=== PATIENT | male | born 1965 | race Caucasian/White ===

== ENCOUNTER 2017-02-15 11:33 | Emergency (ER) | payer OTHER ==
[~2017-02-15] VITALS: Ht 180.3 cm; Wt 90.7 kg
[2017-02-15] MEDS ORDERED: TRAMADOL 50MG T50 M1 PO (11:47)
[2017-02-15 12:12] LABS: HEMOGLOBIN 14.5 g/dL (14.1-18.0); LYMPH # 2.2 K/mm3 (0.7-4.5); LYMPH % 27.6 % (10-50)
--- NOTE | 2017-02-15 12:14 | Emergency Room Report ---
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 N Clinical Suspician of Infection? N Mental Status: 1 - Regular (Normal Baseline) Sepsis Risk:Low Sepsis Risk Have you (or family members/close friends) recently traveled outside the [place]? N If Yes, where/when: Have you had exposure to infectious disease within the past month? N TB? Other? Specify: Source patient, RN notes reviewed, family, RN/MD Exam Limitations no limitations Comment This is a 52-year-old male arriving to the emergency room complaining with a variety of symptoms: low back pain x 2 weeks, brownish discharge since Wednesday (for the past 2 days), brownish discharge from the surgical wound (for the past 2 days), numbness and tingling of the lower extremities, below the knees cold feet (present befor the surgery, but recurrent afterwards), pain in the lower extremities with walking. Patient underwent a L4-L5 laminectomy on 02/02/17 at [facility] by Dr. Bry Mills, due to a herniated disc and pinched nerve. He had a normal postoperative course, over the next few days. She denies any fever, any chills. He called the neurosurgeon's office earlier this morning and he was advised to go to the emergency room for evaluation. He is taking Ultram for pain, which patient advised is not helping his pain too much. Patient denies any urinary incontinence, denies any fecal incontinence. The patient has not changed his surgical dressing in the past 12 hours, which appears to have a small 1 x 1 cm stain of dried blood. ALLERGIES Coded Allergies: No Known Allergies (02/15/17) Home Medications Reported Medications TRAMADOL HCL (Tramadol) 50 MG PO Q6H6 History Medical History General CAD? No Angina: No [place]: No Hypertension? No PE? No COPD? No Asthma? No Anemia? No CVA? No Seizures? No Diabetes? No Stones? No BPH? No GB Disease: No Nephritic Syndrome? No Immunization Hx DT/Tetanus Unknown Surgical Hx Previous Surgery?Y Back Surgery Social History Smoking Hx Smoker: Never Smoker Tobacco: No Review of Systems All Other Systems Reviewed and Negative Musculoskeletal back pain Psychiatric/Neurological tingling (lower extremities, below knees) Physical Exam Vital Signs Vital Signs Date Time Temp Pulse Resp B/P Pulse O2 O2 Flow FiO2 Ox Delivery Rate 02/15 1350 97.5 98 18 120/75 99 02/15 1137 97.5 98 18 118/80 99 General Appearance normal appearance, WD/WN Respiratory Status Yes: trachea midline, chest symmetrical, non tender chest. No: respiratory distress. Lung Sounds bilateral: normal breath sounds, lungs clear. Cardiovascular normal exam, regular rate/rhythm, no peripheral edema, no gallop, no JVD, no murmur, no rub, normal peripheral pulses Gastrointestinal normal bowel sounds, normal exam, non tender, soft, no organomegaly Back no CVA tenderness, no vertebral tenderness, muscle spasm Neurologic alert, career information specialist II-XII nml as tested, normal exam, oriented x 3 Mental status normal mood/affect Skin normal color, warm/dry, midline low back post surgical wound, normal healing process, stapled, no soft tissue swelling, no active drainage Medical Decision Making LABS/Meds/Orders Pt receiving controlled substance in ED? Yes Azeem was queried for this patient? No Reason not queried - hospital network issues Risks/benefits of using a controlled substance for treatment were discussed w/pt by me Comment 11:45am-case discussed with Dr. Mills, called the office. Advised of the patient' s presentation and findings. There is a discrepancy between the symptoms given to the office (by the patient) vs actual findings and symptoms acknowledged upon arrival to the emergency room. Apparently, the office was under the impression the patient was unable to walk, which is definetly not accurate, as the patient was seen walking from the car to the wheelchair, across a parking lot, as well as from the wheelchair to the ER bed. Dr. Mills recommended to obtain a CT scan of the LS spine with IV contrast in order to rule out a possible epidural abscess, and be called back with results. Again the patient does not seem to have an examination consistent with the complaints described to the office, namely numbness and weakness of the lower extremities (or inabilitry to walk). 13:35-called xavi Mills (2nd time, this time on his cell phone, given by the office) and advised of the CT scan findings. Dr. Mills wants to see the patient in his [place] office tomorrow, with imaging studies copied on a CR-ROM. 13:40-called the office myself and schedule patient at the [place] location for 3:45 PM tomorrow. 13:45-Quinton, Dr Mills's PA, called back this emergency room department in order to discuss case and findings, aware of the appointment tomorrow, at 3:45 PM tomorrow. Neither Quinton nor Dr Mills want to start antibiotics. Copies of the CT scan, as well as lab work, given to the patient to take to the neurosurgeon's office tomorrow. Results/Orders Laboratory Tests 02/15/17 1435: POC Glucose 227 H 02/15/17 1200: Sodium 137, Potassium 5.2 H, Chloride 101, Carbon Dioxide 25, BUN 17, Creatinine 1.4 H, Estimated Creat Clear 81, Estimated GFR (MDRD) 54, Glucose 417 H, Calcium 8.9, Total Bilirubin 1.1 H, AST 22, ALT 43, Alkaline Phosphatase 86, Total Protein 6.7, Albumin 3.7, Globulin 3.0, Albumin/Globulin Ratio 1.2, WBC 7.8, RBC 4.82, Hgb 14.5, Hct 44.3, MCV 91.8, RDW 12.6, Plt Count 350, MPV 7.0 L, Gran % 63.9, Gran # 5.0, Lymphocytes % 27.6, Monocytes % 5.5, Eosinophils % 2.6, Basophils % 0.3, Lymphocytes # 2.2, Monocytes # 0.4, Eosinophils # 0.2, Basophils # 0.0, PUBS MCHC 32.7, MCH 30.1 Current Medication Orders Sig/Alexander Start time Last Medication Dose Route Stop Time Status Admin Insulin Human Regular 6 UNITS ONCE ONE 02/15 1400 DC 02/15 IVP 02/15 1401 1358 Insulin Human Regular 0 .STK-MED ONE 02/15 1357 DC .ROUTE Sodium Chloride 1,000 ML .STK-MED ONE 02/15 1252 DC IV Sodium Chloride 1,000 ML .Q1H1M 02/15 1245 DC 02/15 IV 02/15 1345 1252 Sodium Chloride 10 ML PRN PRN 02/15 1245 DCD IV 02/16 1241 Sodium Chloride 10 ML PRN PRN 02/15 1200 DCD IV 02/16 1149 Orders Procedure Date/time Status FINGERSTICK BLOOD SUGAR 02/15 1435 Complete FSBS REQUEST BY CARE AREA 02/[address] SCAN REQUEST 02/15 1149 Complete IV SALINE LOCK 02/15 1149 Active CBC WITH AUTO DIFF 02/15 1148 Complete CHEM 12 PROFILE 02/15 1148 Complete XRAY/CT/US XRAY/CT/US CT L-spine (IV contrast) CT interpretation by discussed w/radiologist (Dr. Hawkins) CT Results case discussed with Dr. Hawkins over the phone as well as in person, he does not think the patient has any prodromal abscess. Furthermore the radiologist advised the patient has a small seroma tract, and he is concerned with a possible dural leak. Those findings were conveyed to the neurosurgeon, Dr. Mills. Departure Departure Time of Disposition 1331 Disposition DC Home or Self Care(routine) Clinical Impression Primary Impression: Post-op pain Secondary Impressions: Acute renal injury Diabetes mellitus Qualifiers: Diabetes mellitus type: type 2 Diabetes mellitus complication status: with unspecified complications Diabetes mellitus mcc insulin use: without mcc use Qualified Code: E11.8 - Type 2 diabetes mellitus with unspecified complications Condition STABLE Referrals Gene CONRAD,Bry Farr tomorrow at 3:45pm at the [facility] Patient Instructions Complications of Diabetes (Alternative Therapy), DI for Diabetes Type 2, Diabetes Research 2008, Diet Soda Intake Linked to Increase Risk of Type 2 Diabetes, DIET-TYPE2 DIABETES NUTRIT.[facility], Green Leafy Vegetables May Decrease Risk of Type 2 Diabetes, Low Back Pain, Processed Meat Associated with Increased Risk of Diabetes and Coronary Hear, Sugar-Sweetened Fruit Drinks Linked to Increased Chance of Type 2 Diabetes , Type 2 Diabetes, Type 2 Diabetes Associated with Increased Risk of Depression Additional Instructions Please go follow up with Dr. Bry Mills in the [place] office tomorrow at 3: 45 PM, as discussed with his physician grooming assistant as well as secretary receptionist. Attached , please find enclosed copies of the CT scan of your LS spine with iv dye, obtained today, + report and blood work. Please see your [facility] today (regarding your diabetes), as already scheduled!!! Discharge Counseling Counseled pt/family regarding diagnosis, test results, medications/RX, home care, follow up needs Comment Please go follow up with Dr. Bry Mills in the [place] office tomorrow at 3: 45 PM, as discussed with his physician grooming assistant as well as secretary receptionist. Attached , please find enclosed copies of the CT scan of your LS spine with iv dye, obtained today, + report and blood work. Prescriptions Current Visit Scripts HYDROCODONE/ACETAMINOPHEN (Lortab 10-325 (generic) Tablet) 1 TAB PO Q6HP PRN pain #6 TAB ED Critical Care Critical Care No at [id number]
--- NOTE | 2017-02-15 12:14 | Emergency Room Report ---
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 N Clinical Suspician of Infection? N Mental Status: 1 - Regular (Normal Baseline) Sepsis Risk:Low Sepsis Risk Have you (or family members/close friends) recently traveled outside the [place]? N If Yes, where/when: Have you had exposure to infectious disease within the past month? N TB? Other? Specify: Source patient, RN notes reviewed, family, RN/MD Exam Limitations no limitations Comment This is a 52-year-old male arriving to the emergency room complaining with a variety of symptoms: low back pain x 2 weeks, brownish discharge since Wednesday (for the past 2 days), brownish discharge from the surgical wound (for the past 2 days), numbness and tingling of the lower extremities, below the knees cold feet (present befor the surgery, but recurrent afterwards), pain in the lower extremities with walking. Patient underwent a L4-L5 laminectomy on 02/02/17 at [facility] by Dr. Bry Mills, due to a herniated disc and pinched nerve. He had a normal postoperative course, over the next few days. She denies any fever, any chills. He called the neurosurgeon's office earlier this morning and he was advised to go to the emergency room for evaluation. He is taking Ultram for pain, which patient advised is not helping his pain too much. Patient denies any urinary incontinence, denies any fecal incontinence. The patient has not changed his surgical dressing in the past 12 hours, which appears to have a small 1 x 1 cm stain of dried blood. ALLERGIES Coded Allergies: No Known Allergies (02/15/17) Home Medications Reported Medications TRAMADOL HCL (Tramadol) 50 MG PO Q6H6 History Medical History General CAD? No Angina: No [place]: No Hypertension? No PE? No COPD? No Asthma? No Anemia? No CVA? No Seizures? No Diabetes? No Stones? No BPH? No GB Disease: No Nephritic Syndrome? No Immunization Hx DT/Tetanus Unknown Surgical Hx Previous Surgery?Y Back Surgery Social History Smoking Hx Smoker: Never Smoker Tobacco: No Review of Systems All Other Systems Reviewed and Negative Musculoskeletal back pain Psychiatric/Neurological tingling (lower extremities, below knees) Physical Exam Vital Signs Vital Signs Date Time Temp Pulse Resp B/P Pulse O2 O2 Flow FiO2 Ox Delivery Rate 02/15 1350 97.5 98 18 120/75 99 02/15 1137 97.5 98 18 118/80 99 General Appearance normal appearance, WD/WN Respiratory Status Yes: trachea midline, chest symmetrical, non tender chest. No: respiratory distress. Lung Sounds bilateral: normal breath sounds, lungs clear. 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 Yes Azeem was queried for this patient? No Reason not queried - hospital network issues Risks/benefits of using a controlled substance for treatment were discussed w/pt by me Comment 11:45am-case discussed with Dr. Mills, called the office. Advised of the patient' s presentation and findings. There is a discrepancy between the symptoms given to the office (by the patient) vs actual findings and symptoms acknowledged upon arrival to the emergency room. Apparently, the office was under the impression the patient was unable to walk, which is definetly not accurate, as the patient was seen walking from the car to the wheelchair, across a parking lot, as well as from the wheelchair to the ER bed. Dr. Mills recommended to obtain a CT scan of the LS spine with IV contrast in order to rule out a possible epidural abscess, and be called back with results. Again the patient does not seem to have an examination consistent with the complaints described to the office, namely numbness and weakness of the lower extremities (or inabilitry to walk). 13:35-called xavi Mills (2nd time, this time on his cell phone, given by the office) and advised of the CT scan findings. Dr. Mills wants to see the patient in his [place] office tomorrow, with imaging studies copied on a CR-ROM. 13:40-called the office myself and schedule patient at the [place] location for 3:45 PM tomorrow. 13:45-Quinton, Dr Mills's PA, called back this emergency room department in order to discuss case and findings, aware of the appointment tomorrow, at 3:45 PM tomorrow. Neither Quinton nor Dr Mills want to start antibiotics. Copies of the CT scan, as well as lab work, given to the patient to take to the neurosurgeon's office tomorrow. Results/Orders Laboratory Tests 02/15/17 1435: POC Glucose 227 H 02/15/17 1200: Sodium 137, Potassium 5.2 H, Chloride 101, Carbon Dioxide 25, BUN 17, Creatinine 1.4 H, Estimated Creat Clear 81, Estimated GFR (MDRD) 54, Glucose 417 H, Calcium 8.9, Total Bilirubin 1.1 H, AST 22, ALT 43, Alkaline Phosphatase 86, Total Protein 6.7, Albumin 3.7, Globulin 3.0, Albumin/Globulin Ratio 1.2, WBC 7.8, RBC 4.82, Hgb 14.5, Hct 44.3, MCV 91.8, RDW 12.6, Plt Count 350, MPV 7.0 L, Gran % 63.9, Gran # 5.0, Lymphocytes % 27.6, Monocytes % 5.5, Eosinophils % 2.6, Basophils % 0.3, Lymphocytes # 2.2, Monocytes # 0.4, Eosinophils # 0.2, Basophils # 0.0, PUBS MCHC 32.7, MCH 30.1 Current Medication Orders Sig/Alexander Start time Last Medication Dose Route Stop Time Status Admin Insulin Human Regular 6 UNITS ONCE ONE 02/15 1400 DC 02/15 IVP 02/15 1401 1358 Insulin Human Regular 0 .STK-MED ONE 02/15 1357 DC .ROUTE Sodium Chloride 1,000 ML .STK-MED ONE 02/15 1252 DC IV Sodium Chloride 1,000 ML .Q1H1M 02/15 1245 DC 02/15 IV 02/15 1345 1252 Sodium Chloride 10 ML PRN PRN 02/15 1245 DCD IV 02/16 1241 Sodium Chloride 10 ML PRN PRN 02/15 1200 DCD IV 02/16 1149 Orders Procedure Date/time Status FINGERSTICK BLOOD SUGAR 02/15 1435 Complete FSBS REQUEST BY CARE AREA 02/[address] SCAN REQUEST 02/15 1149 Complete IV SALINE LOCK 02/15 1149 Active CBC WITH AUTO DIFF 02/15 1148 Complete CHEM 12 PROFILE 02/15 1148 Complete XRAY/CT/US XRAY/CT/US CT L-spine (IV contrast) CT interpretation by discussed w/radiologist (Dr. Hawkins) CT Results case discussed with Dr. Hawkins over the phone as well as in person, he does not think the patient has any prodromal abscess. Furthermore the radiologist advised the patient has a small seroma tract, and he is concerned with a possible dural leak. Those findings were conveyed to the neurosurgeon, Dr. Mills. Departure Departure Time of Disposition 1331 Disposition DC Home or Self Care(routine) Clinical Impression Primary Impression: Post-op pain Secondary Impressions: Acute renal injury Diabetes mellitus Qualifiers: Diabetes mellitus type: type 2 Diabetes mellitus complication status: with unspecified complications Diabetes mellitus long-term insulin use: without long-term use Qualified Code: E11.8 - Type 2 diabetes mellitus with unspecified complications Condition STABLE Referrals Gene CONRAD,Bry Farr tomorrow at 3:45pm at the [facility] Patient Instructions Complications of Diabetes (Alternative Therapy), DI for Diabetes Type 2, Diabetes Research 2008, Diet Soda Intake Linked to Increase Risk of Type 2 Diabetes, DIET-TYPE2 DIABETES NUTRIT.[facility], Green Leafy Vegetables May Decrease Risk of Type 2 Diabetes, Low Back Pain, Processed Meat Associated with Increased Risk of Diabetes and Coronary Hear, Sugar-Sweetened Fruit Drinks Linked to Increased Chance of Type 2 Diabetes , Type 2 Diabetes, Type 2 Diabetes Associated with Increased Risk of Depression Additional Instructions Please go follow up with Dr. Bry Mills in the [place] office tomorrow at 3: 45 PM, as discussed with his physician real estate administrative assistant as well as chief financial officer. Attached , please find enclosed copies of the CT scan of your LS spine with iv dye, obtained today, + report and blood work. Please see your [facility] today (regarding your diabetes), as already scheduled!!! Discharge Counseling Counseled pt/family regarding diagnosis, test results, medications/RX, home care, follow up needs Comment Please go follow up with Dr. Bry Mills in the [place] office tomorrow at 3: 45 PM, as discussed with his physician real estate administrative assistant as well as chief financial officer. Attached , please find enclosed copies of the CT scan of your LS spine with iv dye, obtained today, + report and blood work. Prescriptions Current Visit Scripts HYDROCODONE/ACETAMINOPHEN (Lortab 10-325 (generic) Tablet) 1 TAB PO Q6HP PRN pain #6 TAB ED Critical Care Critical Care No at [id number]
--- OUTSIDE RECORDS SUMMARY | 2017-02-15 12:37 | External Medical Summary Rpt | CCD ---
Author Author [employer] Organization [employer] Address Unknown Phone Unavailable Purpose Continuity of Care Document - through 2016
--- OUTSIDE RECORDS SUMMARY | 2017-02-15 12:37 | External Medical Summary Rpt ---
Author Author [facility] Organization [facility] Address Unknown Phone Unavailable Care Team Providers Care Curb Attendant Name Role Phone DR GABBY PCP [phone] Encounter [facility] [id number] Date(s): 01/28/17 - 02/02/17 [facility] [address] [place] [address]- [phone] Discharge Disposition: OP Self Care or Home Attending Physician: ANNIE COVARRUBIAS MD-ORSancho Admitting Physician: ANNIE COVARRUBIAS MD-ORSancho Referring Physician: ANNIE COVARRUBIAS MD-ORT Reason for Visit RADICULOPATHY, LUMBAR REGION Vital Signs Most recent 1 2 3 to oldest [Reference Range]: Temperature Temporal artery Temporal artery Temporal artery Source scanning (02/02/17 scanning (02/02/17 scanning (02/02/17 2:18 PM) 1:00 PM) 11:50 AM) Temperature Fahrenheit Fahrenheit Fahrenheit Mode (02/02/17 2:18 PM) (02/02/17 1:00 PM) (02/02/17 11:50 AM) Temperature, 98 Deg F 96.9 Deg F 96.6 Deg F Fahrenheit (02/02/17 2:18 PM) (02/02/17 1:00 PM) *LOW*(02/02/17 [96.8-99.7 11:50 AM) Deg F] Clinical 36.7 Deg C 36.1 Deg C 35.9 Deg C Temperature, (02/02/17 2:18 PM) (02/02/17 1:00 PM) (02/02/17 11:50 C AM) Peripheral 91 bpm 89 bpm (02/01/17 Pulse Rate (02/02/17 2:33 PM) 10:15 AM) [60-100 bpm] Heart Rate 83 bpm 84 bpm 78 bpm Monitored (02/02/17 2:18 PM) (02/02/17 2:00 PM) (02/02/17 1:30 PM) [60-100 bpm] Respiratory 49 Breaths/Min 26 Breaths/Min 17 Breaths/Min Rate [14-20 *HI* *HI* (02/02/17 1:30 PM) Breaths/Min] (02/02/17 2:18 PM) (02/02/17 2:00 PM) Blood 156/76 mmHg 158/65 mmHg 138/63 mmHg Pressure *HI* *HI* (02/02/17 2:00 PM) [90-140/60-9 (02/02/17 2:33 PM) (02/02/17 2:18 PM) 0 mmHg] Mean 96 mmHg 88 mmHg 97 mmHg Arterial (02/02/17 2:18 PM) (02/02/17 2:00 PM) (02/02/17 1:30 PM) Pressure (MAP) Mean 94 91 100 Arterial (02/02/17 2:18 PM) (02/02/17 2:00 PM) (02/02/17 1:30 PM) Pressure (MAP)-BMDI Oxygen 98 % 93 % 92 % Saturation (02/02/17 2:33 PM) *LOW* *LOW* [94-100 %] (02/02/17 2:18 PM) (02/02/17 2:00 PM) Oxygen Room air Room air Room air Therapy Mode (02/02/17 2:18 PM) (02/02/17 2:00 PM) (02/02/17 1:30 PM) Oxygen Flow 6 Liter/Min Rate (02/02/17 11:50 AM) Height Measured (02/01/17 Source 10:15 AM) Height Entry [place] (02/01/17 Format 10:15 AM) Height/Lengt 71 Inch (02/01/17 h [place] 10:15 AM) CLINICALHEIG 180.34 cm HT (02/01/17 10:15 AM) Weight Standing scale Source (02/01/17 10:15 AM) Weight Entry [place] (02/01/17 Format 10:15 AM) Weight 213 lb (02/01/17 [place] lb 10:15 AM) CLINICALWEIG 96.82 kg (02/01/17 HT 10:15 AM) Body Surface 2.17 m2 (02/01/17 Area (BSA) 10:15 AM) Body Mass 29.8 kg/m2 Index [19-24 *HI*(02/01/17 kg/m2] 10:15 AM) [place] Body 74 kg (02/01/17 Weight 10:15 AM) Problem List Condition Effective Status Health Informant Dates Status Back Active pain(Confirm ed) Numbness and Active tingling//fe et(Confirmed ) Leg pain, Active bilateral(Co nfirmed) Wears Active contacts(Con firmed) Allergies, Adverse Reactions, Alerts No Known Allergies Medications acetaminophen/aspirin/caffeine (Excedrin Migraine oral tablet)2 Tablet(s) Oral Every 6 Hours as needed for headache. ascorbic acid (Vitamin C 250 mg oral tablet, chewable)1 Tablet(s) Chew Every Day. aspirin (Aspir 81)81 Milligram(s) Oral Every Day. last dose 2 weeks. multivitamin 1 Tablet(s) Oral Every Day. Results GENERAL CHEMISTRY Most recent 1 to oldest [Reference Range]: Sodium Level 141 mmol/L [136-146 (02/01/17 10:52 AM) mmol/L] Potassium 4.5 mmol/L Level (02/01/17 10:52 AM) [3.5-5.1 mmol/L] Chloride 106 mmol/L Level (02/01/17 10:52 AM) [102-112 mmol/L] Carbon 25 mmol/L Dioxide (02/01/17 10:52 AM) Level [21-32 mmol/L] Anion Gap 14 [9-20] (02/01/17 10:52 AM) Glucose 242 mg/dL Level *HI* [74-106 (02/01/17 10:52 AM) mg/dL] Blood Urea 9 mg/dL Nitrogen (02/01/17 10:52 AM) [7-22 mg/dL] Creatinine 1.10 mg/dL Level (02/01/17 10:52 AM) [0.70-1.30 mg/dL] eGFR 86 mL/min/1.73m2 [>=60 (02/01/17 10:52 AM) mL/min/1.73m 2] eGFR 71 mL/min/1.73m2 NonAfrican (02/01/17 10:52 AM) [>=60 mL/min/1.73m 2] Bun/Creatini 8.2 ne (02/01/17 10:52 AM) [8.0-20.0] Calcium 8.4 mg/dL Level *LOW* [8.5-10.1 (02/01/17 10:52 AM) mg/dL] Device No action Require Comment 1 *NA* (02/02/17 8:22 AM) Glucose POC2 160 mg/dL [70-110 *HI* mg/dL] (02/02/17 8:22 AM) HEMATOLOGY Most recent 1 to oldest [Reference Range]: WBC [4.2-9.1 7.0 K/uL K/uL] (02/01/17 10:52 AM) RBC 4.70 Million/uL [4.63-6.08 (02/01/17 10:52 AM) Million/uL] Hgb 14.6 g/dL [13.7-17.5 (02/01/17 10:52 AM) g/dL] Hct 41.7 % [40.1-51.0 (02/01/17 10:52 AM) %] MCV 88.7 fL [79.0-94.8 (02/01/17 10:52 AM) fL] MCH 31.1 pg [25.6-32.2 (02/01/17 10:52 AM) pg] MCHC 35.0 Gram/dL [32.2-36.5 (02/01/17 10:52 AM) Gram/dL] Platelet 258 K/uL Count (02/01/17 10:52 AM) [163-369 K/uL] MPV 9.9 fL [9.4-12.4 (02/01/17 10:52 AM) fL] RDW 12.4 % [11.6-14.4 (02/01/17 10:52 AM) %] Slide Review No (02/01/17 10:52 AM) BLOOD BANK Most recent 1 to oldest [Reference Range]: ABO/Rh A POS (ECHO) *Unknown* (02/01/17 10:52 AM) ABO/Rh A POS Repeat *Unknown* (02/02/17 8:23 AM) Antibody Negative ABSC Screen (02/01/17 10:52 AM) Immunizations No data available for this section Procedures Procedure Date Related Body Site Diagnosis none Social History Social History Response Type Smoking Status Never smoker Assessment and Plan No data available for this section Hospital Discharge Instructions Patient EducationOutpatient Surgery Guidelines, Adult
--- OUTSIDE RECORDS SUMMARY | 2017-02-15 12:37 | External Medical Summary Rpt ---
Author Author [facility] Organization [facility] Address Unknown Phone Unavailable Care Team Providers Care Medical Office Representative Name Role Phone DR GABBY PCP [phone] Encounter [facility] [id number] Date(s): 01/28/17 - 02/02/17 [facility] [address] [place] [address]- [phone] Discharge Disposition: OP Self Care or Home [...] Measured (02/01/17 Source 10:15 AM) Height Entry [place] (02/01/17 Format 10:15 AM) Height/Lengt 71 Inch (02/01/17 h [place] 10:15 AM) CLINICALHEIG 180.34 cm HT (02/01/17 10:15 AM) Weight Standing scale Source (02/01/17 10:15 AM) Weight Entry [place] (02/01/17 Format 10:15 AM) Weight 213 lb (02/01/17 [place] lb 10:15 AM) CLINICALWEIG 96.82 kg (02/01/17 HT 10:15 AM) Body Surface 2.17 m2 (02/01/17 Area (BSA) 10:15 AM) Body Mass 29.8 kg/m2 Index [19-24 *HI*(02/01/17 kg/m2] 10:15 AM) [place] Body 74 kg (02/01/17 Weight 10:15 AM) [...]
--- OUTSIDE RECORDS SUMMARY | 2017-02-15 12:37 | External Medical Summary Rpt | CCD ---
Author Author , WILMA ADHIKARI Address Unknown Phone Purpose Continuity of Care Document - 02-15-2017 through 2016
--- OUTSIDE RECORDS SUMMARY | 2017-02-15 12:37 | External Medical Summary Rpt | CCD ---
Demographics Preferred Language Malian Marital Status Unknown Denominational Affiliation Unknown Race Unknown Ethnic Group Unknown Author Author , WILMA ADHIKARI Address Unknown Phone Immunization No patient found.
--- OUTSIDE RECORDS SUMMARY | 2017-02-15 12:37 | External Medical Summary Rpt | CCD ---
Demographics Preferred Language Icelandic Marital Status Unknown Sabianism Affiliation Unknown Race Unknown Ethnic Group Unknown Author Author , WILMA ADHIKARI Address Unknown Phone Immunization No patient found.
--- OUTSIDE RECORDS SUMMARY | 2017-02-15 12:38 | External Medical Summary Rpt ---
Author Author [facility] Organization [facility] Address Unknown Phone Unavailable Results CBC W Auto Differential panel in Blood Observa Value Referen Units Interpr Notes Date tion ce etation Range Basophils 0 - 0.2 K/MM3 Normal No Feb 152016 [#/volume on in 12:00 PM ] in source Blood by data Automated count Basophils 0.1 - 2.0 % Normal No Feb 152016 leukocyte on in 12:00 PM s in source Blood by data Automated count Eosinophi 0.0 - 0.4 K/mm3 Normal No Feb 15 ls 2016 [#/volume on in 12:00 PM ] in source Blood by data Automated count Eosinophi 0.1 - % Normal No Feb 15 ls/100 12.0 2016 leukocyte on in 12:00 PM s in source Blood by data Automated count Granulocy 1.3 - 8.0 K/mm3 Normal No Feb 15 martina 2016 [#/volume on in 12:00 PM ] in source Blood by data Automated count Granulocy 37.0 - % Normal No Feb 15 martina/100 80.0 2016 leukocyte on in 12:00 PM s in source Blood by data Automated count Hematocri 42.0 - % Normal No Feb 15 t [Volume 52.0 2016 on in 12:00 PM Fraction] source of Blood data Hemoglobi 14.1 - g/dL Normal No Feb 15 n 18.0 2016 [Mass/vol on in 12:00 PM ume] in source Blood data Lymphocyt 0.7 - 4.5 K/mm3 Normal No Feb 15 es 2016 [#/volume on in 12:00 PM ] in source Unspecifi data ed specimen by Automated count Lymphocyt 10 - 50 % Normal No Feb 15 es 2016 [#/volume on in 12:00 PM ] in source Unspecifi data ed specimen by Automated count Erythrocy 27 - 31.2 pg Normal No Feb 15 te mean 2016 corpuscul on in 12:00 PM ar source hemoglobi data n [Entitic mass] Erythrocy 31.8 - g/dl Normal No Feb 15 te mean 35.4 2016 corpuscul on in 12:00 PM ar source hemoglobi data n concentra tion [Mass/vol ume] by Automated count Erythrocy 82.2 - fl Normal No Feb 15 te mean 97.8 2016 corpuscul on in 12:00 PM ar volume source [Entitic data volume] by Automated count Monocytes 0.1 - 1.0 K/mm3 Normal No Feb 15 inform2016 [#/volume on in 12:00 PM ] in source Blood by data Automated count Monocytes 1.7 - 9.3 % Normal No Feb 15 /100 2016 leukocyte on in 12:00 PM s in source Blood by data Automated count Platelet 7.4 - fl Low No Feb 15 mean 10.4 2016 volume on in 12:00 PM [Entitic source volume] data in Blood by Automated count Platelets 142 - 424 K/mm3 Normal No Feb 15 inform2016 [#/volume on in 12:00 PM ] in source Blood data Erythrocy 4.6 - 6.2 M/mm3 Normal No Feb 15 martina inform2016 [#/volume on in 12:00 PM ] in source Amniotic data fluid Erythrocy 11.5 - % Normal No Feb 15 te 17.5 2016 distribut on in 12:00 PM ion width source [Entitic data volume] by Automated count Leukocyte 4.8 - K/MM3 Normal No Feb 15 s 10.8 informati 2016 [#/volume on in 12:00 PM ] in source Blood data
[2017-02-15 13:50] VITALS: BP 120/75
--- NOTE | 2017-02-15 13:58 | RADIOLOGY REPORT PS360 ---
CT LUMBAR WITH CONTRAST Ordering Physician: Luis Barrow MD Patient Age: 52 years: Male HISTORY: L SPINE PAIN W/ DRAINAGE--S/P SX ON L4/L5 ON 02/02/17 TECHNIQUE: Helical CT scanning performed through the lumbar spine postcontrast with with 1 minute and subsequent over 2 minutes delayed images performed. On the thin sections acquired sagittal, coronal entire spine. Also angled axial images performed at the lower levels COMPARISON :None available FINDINGS The patient is undergone recent L4/5 laminectomy . The disc height is well-maintained at L4/5 with no disc spacer device evident & do not see definitive discectomy defect.. There is a diffuse posterior bulge at L4/5 with slight additional central bulge.. Delayed postcontrast images today show mild enhancement throughout entire disc margin as well as enhancement of the dura overlying generous edematous, hypertrophy appearing ligamentum flavum at this level. .The laminectomy has decompressed the spinal canal superiorly at L4/5 level- & at the level immediate posterior to the L4/5 disc... As continue to the inferiorly aspect of the disc 4/5, at the inferior aspect of the laminectomy the generous hypertrophy ligamentum flavum along with disc bulge-, yields notable residual narrowing & central stenosis of the thecal sac this level.,, just inferior to the disc level/just below the laminectomy defect. Suspect mainly viewing postsurgical edema &swelling of tissues in this region & at ligament flavum. Difficult to exclude fluid here tracking posteriorly towards the region of the ligament flavum but more likely edema within them. . Postsurgical features most likely account for enhancing dura here as well.. At this point favor enhancement due to postsurgical changes with no good evidence of infection or abscess.. Tract of fluid leading posterior from the thecal sac at this level & continuing towards the surgical defect. Focal fluid accumulation measuring up to 2.1 cm in the area just beneath just beneath the incision.. I suspect the fluid collection along incision reflect thin resolving seroma or hematoma.. However Cannot exclude dural leak on this study. Follow-up with neurosurgery recommended to further evaluate this patient. No paraspinal mass mass in the vertebral bodies intact.. Disc space margins well delineated. We do not see significant enhancement elsewhere to support abscess. . This requires correlation of the character of the drainage from the incision and lower back. MR Follow-up may be helpful ---- Other levels . L2/3. We also see mild disc enhancement at this level and borderline spinal stenosis L3/4 due to the bulging disc & posterior element hypertrophy.-With moderate facet hypertrophy most notable at this level.. Mild bilateral foraminal encroachment. L1/2. Minor foraminal disc bulge. A trace posterior element hypertrophy. T12/L1. Unremarkable. . L5/S1 with minimal diffuse disc bulge. & Mild facet hypertrophy. Features yield slight AP narrowing of the neural foramen bilaterally . No retroperitoneal pathology kidneys unremarkable pancreas unremarkable aorta normal. Appendix normal. IMPRESSION Recent L4/5 laminectomy. Residual bulging L4/5 disc, along with ligamentum flavum swelling & hypertrophy.-These features narrow the thecal sac, with relative central canal stenosis at & just below level of inferior margin of laminectomy defect. Mild dural enhancement overlying the swollen prominent ligamentum flavum bilaterally inferior aspect L4/5. . Fluid collection extends along incision posterior to the laminectomy defect. This fluid collection begins medially posterior to the thecal sac/ & edematous ligamentum flavum region, with this thin fluid collection extending posteriorly along the incision to the skin... Only Slight additional fluid in the immediate subcutaneous tissue beneath the skin.. I do not see a focal collection with enhancing margins to suggest abscess. More likely this reflects a resolving seroma or hematoma along incision, although cannot totally exclude a dural CSF leak with this appearance. Less likely but will require neurosurgery follow-up and evaluation.
[2017-02-15] MEDS ORDERED: HYDROCODONE/ACE1 TA5 PO (14:28)
== END 2017-02-15 14:48 | disposition home or self-care (01) ==
LOC: ER 11:33
PROVIDERS: Emergency Medicine
DX: G89.18 Other acute postprocedural pain (principal); N17.9 Acute kidney failure, unspecified; E11.8 Type 2 diabetes mellitus with unspecified complications